=== PATIENT | female | born 1990 | race Caucasian/White ===

== ENCOUNTER 2022-10-05 21:21 | Emergency (ER) | payer SELFPAY ==
[2022-10-05 21:23] VITALS: BP 119/60; PULSE 89; RESP 18; TEMP 36.6; O2SAT 98; BMI 42.5
--- NOTE | 2022-10-05 21:43 | EX.ED.VIS.PS ---
HPI HPI - Psych History of Present Illness Chief Complaint: Suicidal Informant: patient Narrative Narrative: Patient presents secondary to suicidal ideation. She sees a counselor at [facility] and states her counselor asked her to come in to get checked out. During today's counseling session it came off the patient is having suicidal thoughts with a plan to use a knife. She states she is never actually attempted. She has been seeing this particular counselor for the past year and was in counseling prior to that as well. She is on Wellbutrin and Zoloft and states there have not been any recent dosage adjustments. She states she sees a counselor because she just gets very overwhelmed with everything. PFSH PFS Medical History Anxiety and depression Medical History no medical history Home Medications bupropion HCl 100 mg tablet,12 hr sustained-release (Wellbutrin SR) 50 mg PO DAILY 10/05/22 [History Last Taken 10/05/22] sertraline 100 mg tablet (Zoloft) 100 mg PO Q24H 10/05/22 [History Last Taken 10/05/22] Allergy/AdvReac Type Severity Reaction Status Date / Time No Known Allergies Allergy Verified 10/05/22 21:26 Social History Smoking Status: Never smoker ROS ROS ED ROS Narrative Decreased p.o. intake today and decreased sleep recently. Constitutional Constitutional ED: Denies chills or fever(s) Eyes Eyes: Denies change in vision or discharge from eye(s) ENT ENT ED: Denies discharge from eye(s), rhinorrhea or sore throat Cardiovascular Cardiovascular: Denies chest pain or palpitations Respiratory/Chest Respiratory/Chest: Denies cough or dyspnea Gastrointestinal Gastrointestinal: Denies abdominal pain, diarrhea, nausea or vomiting Genitourinary Genitourinary ED: Denies dysuria Musculoskeletal Musculoskeletal: Denies back pain or extremity pain Integumentary Denies Abrasions or rash Neurologic Neurologic: Denies headache(s) or weakness Psychiatric Psychiatric: Reports anxiety, depression and suicidal ideation Endocrine Endocrinology: Denies polydipsia or polyuria Allergic/Immunologic Allergic/Immunologic ED: Denies lip swelling or urticaria EXAM Physical Exam Const Vital Signs: 10/05/22 21:23 Temperature 97.9 F Temperature Source Temporal Pulse Rate 89 Respiratory Rate 18 Blood Pressure 119/60 Blood Pressure Mean 79 Pulse Ox 98 Oxygen Delivery Method Room Air Positive well nourished and well developed General Appearance ED: well developed HEENT Reports normocephalic and head/scalp atraumatic Eyes PERRL and EOMs intact bilaterally Neck supple Chest Wall inspection of chest normal and palpation of chest normal Resp normal respiratory effort and clear to auscultation bilaterally Cardio regular rate and regular rhythm GI normal to inspection, nondistended, normoactive bowel sounds Palpation: soft Extremity normal to inspection Neuro oriented x3 and no sensory deficits noted Sensorium / Orientation: alert Motor Exam: strength 5/5 throughout Psych mental status grossly normal Psych Narrative: Anxious and fidgeting. Poor eye contact. Speaks in a quiet voice. Admits to thoughts of hurting herself with a plan, but denies any attempts. Appearance: grossly normal and well kempt Skin no rashes or lesions noted MDM MDM MDM Narrative Medical decision making narrative: Mental health work-up was undertaken. Lab Data Attestation: I reviewed the patient's lab results. Labs: Laboratory Results - last 24 hr 10/05/22 10/05/22 21:55 22:10 WBC 7.1 RBC 4.85 Hgb 13.4 Hct 41.7 MCV 86.0 MCH 27.6 MCHC 32.1 RDW Std Deviation 46.1 H RDW Coeff of Raffy 14.5 Plt Count 310 MPV 8.8 Immature Gran % (Auto) 0.300 Neut % (Auto) 68.8 Lymph % (Auto) 23.6 [place] % (Auto) 5.3 Eos % (Auto) 1.4 Baso % (Auto) 0.6 Absolute Neuts (auto) 4.9 Absolute Lymphs (auto) 1.68 Nucleated RBC % 0 Sodium 137 Potassium 3.5 Chloride 105 Carbon Dioxide 26.0 Anion Gap 6 BUN 11 Creatinine 0.67 Estim Creat Clear Calc 117.22 Est GFR (MDRD) Af Amer 131 Est GFR (MDRD) Non-Af 108 BUN/Creatinine Ratio 16.4 Glucose 96 Calcium 9.5 Serum , Qual NEGATIVE Urine Opiates Screen NEGATIVE Urine Methadone Screen NEGATIVE Ur Barbiturates Screen NEGATIVE Ur Phencyclidine Scrn NEGATIVE Ur Amphetamines Screen NEGATIVE MDMA (Ecstasy) Screen NEGATIVE U Benzodiazepines Scrn NEGATIVE Urine Cocaine Screen NEGATIVE U Cannabinoids Screen NEGATIVE Ur Drug Screen Comment Ethyl Alcohol < 3.0 Treatment and Re-Evaluation Narrative: CBC and chemistry studies are unremarkable. Tox screen is negative. EtOH is less than 3. Counseling center has been called and will evaluate the patient. Patient be signed over to oncoming physician for further observation. Discharge Plan Triage Chief Complaint: Suicidal ED Provider: Elma Morales Dx/Rx/DC Orders Clinical Impression: Suicidal ideation Prescriptions: No Action sertraline [Zoloft] 100 mg tablet 100 mg PO Q24H bupropion HCl [Wellbutrin SR] 100 mg tablet sustained-release 12 hr 50 mg PO DAILY Primary Care Provider: Shelia Glass Referrals: NOT,DEFINED [Non-Staff] -
--- NOTE | 2022-10-05 22:03 | ED.RN ---
family member brought pt to ED. Dr. Morales states does not need sitter while visitor present.
[2022-10-05 22:27] LABS: Absolute Lymphocyte Count 1.68 X10^3/uL (0.83-4.51); Absolute Neutrophil Count 4.9 X10^3/uL (2.0-7.7); Basophil# 0.04 X10^3/uL; Basophil% 0.6 % (0-1); Eosinophils% 1.4 % (0-5); Hematocrit 41.7 % (37-47); Hemoglobin 13.4 g/dL (12.0-15.0); Lymphocyte # 1.68 X10^3/ul (0.83-4.51); Lymphocyte % 23.6 % (19-41); Mean Corp Hgb Conc 32.1 g/dL (32-36); Mean Corpuscular Hgb 27.6 pg (27.0-32.0); Mean Platelet Vol. 8.8 fl (6.2-12.0); Monocyte# 0.38 X10^3/uL; Monocyte% 5.3 % (0-10); NRBC Flagged by Analyzer 0 % (0-5); Neutrophil # 4.89 X10^3/uL (2.7-7.7); Neutrophil % 68.8 % (47-70); Platelet Count 310 K/mm3 (150-450); RBC Distribution Width CV 14.5 % (11.6-14.6); RBC Distribution Width SD 46.1 fl (35.1-43.9); Red Blood Count 4.85 M/mm3 (4.2-5.4); White Blood Count 7.1 K/mm3 (4.4-11.0)
[2022-10-05 22:35] LABS: Amphetamine Urine VISTA NEGATIVE (<1000 ng/mL); Barbiturate Urine VISTA NEGATIVE (< 200 ng/mL); Benzodiazepine Urine VISTA NEGATIVE (< 200 ng/mL); Cocaine Urine VISTA NEGATIVE (< 300 ng/mL); Ecstacy Urine VISTA NEGATIVE (< 500 ng/mL); Methadone Urine VISTA NEGATIVE (< 300 ng/mL); PCP Urine VISTA NEGATIVE (< 25 ng/mL); THC Urine VISTA NEGATIVE (< 50 ng/mL); Vista UDS pH Range 7
[2022-10-05 22:41] LABS: Anion Gap 6 (5-15); BUN 11 mg/dL (7-18); BUN/Creat Ratio 16.4 RATIO (10-20); Calcium,Total 9.5 mg/dL (8.5-10.1); Chloride 105 mmol/L (98-107); Creatinine, Serum 0.67 mg/dL (0.55-1.02); EST Glomerular Filtration Rate 108 mL/min (>60); Est Glom Filt Rate - Afr Amer 131 mL/min (>60); Estimated Creatinine Clearance 117.22 ml/min; Glucose 96 mg/dL (74-106); Potassium 3.5 mmol/L (3.5-5.1); Sodium Level 137 mmol/L (136-145)
[2022-10-05 22:56] LABS: Internal QC Validated? YES +Cl - CLEAR BKGD; Pregnancy, Serum, hCG Quali. NEGATIVE Negative
[2022-10-05 23:02] LABS: Alcohol, Blood (Medical)-Serum < 3.0 mg/dL
[2022-10-05 23:22] VITALS: RESP 14
--- NOTE | 2022-10-05 23:35 | NURSING ---
CALLED CRISIS AT [phone]
[2022-10-06 00:22] VITALS: RESP 15
[2022-10-06 01:00] VITALS: RESP 15
--- NOTE | 2022-10-06 01:41 | ED.RN ---
crisis her to see patient at this time
[2022-10-06 02:00] VITALS: RESP 14
[2022-10-06 02:28] VITALS: RESP 14; O2SAT 100
== END 2022-10-06 02:45 | disposition home or self-care (01) ==
PROVIDERS: Emergency Provider Emergency Medicine; PCP Family Medicine; Visit Provider Emergency Medicine
DX: R45.851 Suicidal ideations (principal); F41.9 Anxiety disorder, unspecified; F32.A Depression, unspecified; Z79.899 Other long term (current) drug therapy
CPT/HCPCS: 36415; 80048; 80307; 82077; 84703; 85025; 99284